=== PATIENT | female | born 1975 | race Caucasian/White ===

== ENCOUNTER 2023-01-21 04:04 | Day surgery (SDC) | payer OTHER ==
[2023-01-21 07:35] VITALS: BMI 27.3
[2023-01-21 10:27] VITALS: TEMP 98.4
[2023-01-21 10:31] VITALS: BP 119/66; PULSE 82; RESP 14
== END 2023-01-21 10:45 | disposition home or self-care (01) ==
LOC: JASU-ENDO 04:04
PROVIDERS: ATTEND Internal Medicine Gastroenterology
PROC: 0DJD8ZZ Inspection of Lower Intestinal Tract, Via Natural or Artificial Opening Endoscopic (ICD-10-PCS; principal; 2023-01-21 09:00)
DX: Z12.11 Encounter for screening for malignant neoplasm of colon (principal); K64.8 Other hemorrhoids; I10 Essential (primary) hypertension
CPT/HCPCS: 81025